=== PATIENT | female | born 1940 | race African-American/Black ===

== ENCOUNTER 2018-06-17 11:03 | Inpatient (IN) | payer MEDICARE, BC ==
[~2018-06-17] VITALS: Ht 172.7 cm; Wt 72.6 kg
[2018-06-17 11:33] LABS: BASOPHILS % 0.5 % (0.0-2.0); EOSINOPHILS % 4.3 % (0.0-5.0); HEMATOCRIT. 42.9 % (36.0-48.0); LYMPHOCYTES % 30.3 % (20.0-50.0); MEAN CORPUSCULAR VOLUME 82.5 fL (81.0-99.0); MEAN PLATELET VOLUME 8.8 fl (7.4-10.4); MONOCYTES % 6.6 % (2.0-8.0); NEUTROPHILS % 58.3 % (40.0-76.0); PLATELET 202 x1000/uL (130-400); RED BLOOD CELL COUNT 5.21 mill/uL (4.2-5.4)
[2018-06-17 11:38] LABS: CHLORIDE 104 mEq/L (98-107)
[2018-06-17 11:42] LABS: ETHANOL BLOOD < 10 mg/dL
[2018-06-17 11:48] LABS: INR 1.1; PROTHROMBIN TIME 10.7 sec (9.1-11.1)
[2018-06-17] MEDS ORDERED: ASPIRIN 81MG EC TABLET PO ONE (12:00)
[2018-06-17] MEDS ORDERED: ONDANSETRON HCL 4MG/2ML INJ IV PRN (12:45)
[2018-06-17] MEDS ORDERED: CLONIDINE 0.1MG TABLET PO PRN (12:45)
[2018-06-17] MEDS ORDERED: ACETAMINOPHEN 325MG TABLET PO PRN (12:45)
[2018-06-17 13:34] LABS: CLARITY URINE CLEAR (CLEAR); COLOR URINE YELLOW (YELLOW); KETONES URINE NEGATIVE (NEGATIVE); LEUKOCYTE ESTERASE URINE NEGATIVE (NEGATIVE); NITRITE URINE NEGATIVE (NEGATIVE); OCCULT BLOOD URINE NEGATIVE (NEGATIVE); PROTEIN URINE NEGATIVE (NEGATIVE); SPECIFIC GRAVITY URINE 1.004 (1.005-1.030); UROBILINOGEN URINE 0.2 E.U./dL (0.2-1.0)
[2018-06-17 14:29] LABS: *AMPHETAMINES SCREEN URINE NEGATIVE (NEGATIVE); *BARBITURATES SCREEN URINE NEGATIVE (NEGATIVE); *BENZODIAZEPINES SCREEN URINE NEGATIVE (NEGATIVE); *COCAINE SCREEN URINE NEGATIVE (NEGATIVE); METHADONE URINE SCREEN NEGATIVE (NEGATIVE)
[2018-06-17 14:30] LABS: CANNABINOID URINE SCREEN NEGATIVE (NEGATIVE); OPIATES URINE SCREEN NEGATIVE (NEGATIVE); PHENCYCLIDINE URINE SCREEN NEGATIVE (NEGATIVE)
[2018-06-17] MEDS: LOSARTAN POTASSIUM 25 MG TABLET PO SCH (15:20)
[2018-06-17 15:59] LABS: CREATINE KINASE MB FRACTION < 1.0 ng/mL (0.5-3.6)
[2018-06-17 16:00] VITALS: BP 183/113
[2018-06-17 16:24] LABS: BG BASE EXCESS -0.2 mmol/L (-2.0-2.0); BG CARBOXYHEMOGLOBIN 0.8 % (0.5-1.5); BG DEOXYHEMOGLOBIN 2.7 % (0.0-5.0); BG HCO3 ACT 24.5 mmol/L (22.0-26.0); BG METHEMOGLOBIN 0.3 % (0.0-1.5); BG OXYGEN SATURATION 97.3 % (92.0-98.5); BG OXYHEMOGLOBIN 96.2 % (94.0-97.0); BG PCO2 40.2 mmHg (35.0-45.0); BG PH 7.403 (7.350-7.450); BG PO2 93.3 mmHg (75.0-100.0); BG SAMPLE SITE RIGHT BRACHIAL; BG TOTAL HEMOGLOBIN 14.3 g/dL (12.0-18.0); BG VENT MODE ROOM AIR
[2018-06-17 16:56] LABS: CHLORIDE 107 mEq/L (98-107)
[2018-06-17 16:57] LABS: BASOPHILS % 0.7 % (0.0-2.0); EOSINOPHILS % 3.5 % (0.0-5.0); HEMATOCRIT. 45.6 % (36.0-48.0); HEMOGLOBIN. 14.5 g/dL (12.0-16.0); INR 1.1; MEAN CORPUSCULAR HEMOGLOBIN 27.2 pg (28.0-32.0); MEAN CORPUSCULAR VOLUME 85.7 fL (81.0-99.0); MEAN PLATELET VOLUME 9.5 fl (7.4-10.4); MONOCYTES % 4.7 % (2.0-8.0); NEUTROPHILS % 62.1 % (40.0-76.0); PARTIAL THROMBOPLASTIN TIME 29.6 sec (23.4-31.0); PLATELET 141 x1000/uL (130-400); PROTHROMBIN TIME 10.6 sec (9.1-11.1); RED BLOOD CELL COUNT 5.32 mill/uL (4.2-5.4); RED CELL DISTRIBUTION WIDTH 14.7 % (11.6-14.6)
[2018-06-17] MEDS ORDERED: ASPIRIN 81MG EC TABLET PO NR (17:30)
[2018-06-17 17:41] VITALS: BP 205/97
[2018-06-17] MEDS: BLOOD SUGAR DIAGNOSTIC STRIP TEST SCH ×2 (18:01→21:22)
[2018-06-17 20:00] VITALS: BP 117/76
[2018-06-17 23:15] LABS: CREATINE KINASE MB FRACTION < 1.0 ng/mL (0.5-3.6)
[2018-06-18] VITALS: BP 105/73
[2018-06-18 04:00] VITALS: BP 120/81
[2018-06-18 07:09] LABS: BASOPHILS % 0.5 % (0.0-2.0); EOSINOPHILS % 5.4 % (0.0-5.0); HEMATOCRIT. 38.9 % (36.0-48.0); HEMOGLOBIN. 12.5 g/dL (12.0-16.0); LYMPHOCYTES % 32.8 % (20.0-50.0); MEAN CORPUSCULAR HEMOGLOBIN 26.7 pg (28.0-32.0); MEAN CORPUSCULAR VOLUME 83.1 fL (81.0-99.0); MEAN PLATELET VOLUME 9.2 fl (7.4-10.4); NEUTROPHILS % 55.3 % (40.0-76.0); PLATELET 167 x1000/uL (130-400); RED BLOOD CELL COUNT 4.69 mill/uL (4.2-5.4); RED CELL DISTRIBUTION WIDTH 14.5 % (11.6-14.6)
[2018-06-18] MEDS: BLOOD SUGAR DIAGNOSTIC STRIP TEST SCH ×2 (07:13→12:12)
[2018-06-18 07:31] LABS: CHLORIDE 107 mEq/L (98-107)
[2018-06-18 08:00] VITALS: BP 143/91
[2018-06-18 08:12] LABS: LDL CHOLESTEROL 107 mg/dL (5-100)
[2018-06-18 08:14] LABS: HDL CHOLESTEROL 64 mg/dL (40-59)
[2018-06-18] MEDS ORDERED: ASPIRIN 81MG EC TABLET PO SCH (09:00)
[2018-06-18] MEDS ORDERED: ENOXAPARIN 40MG/0.4ML SYR SUBCUT SCH (09:00)
[2018-06-18] MEDS: LOSARTAN POTASSIUM 25 MG TABLET PO SCH (09:13)
[2018-06-18 11:44] VITALS: BP_SYST 151; BP_SYST 95; BP_DIAS 105; BP_DIAS 62
[2018-06-18 12:00] VITALS: BP 95/70
[2018-06-18 16:00] VITALS: BP 151/105
[2018-06-18] MEDS ORDERED: ATORVASTATIN CALCIUM 10MG TABLET PO SCH ×2 (21:00)
== END 2018-06-18 16:30 | disposition home or self-care (01) | DRG 123 ==
LOC: ER 11:03 → 8WST 12:17 → ENRESERV 14:22
PROVIDERS: ADMIT Internal Medicine Geriatric Medicine; ATTEND Internal Medicine Geriatric Medicine
DX: G45.3 Amaurosis fugax (principal); R00.1 Bradycardia, unspecified; E78.5 Hyperlipidemia, unspecified; I16.0 Hypertensive urgency; I11.9 Hypertensive heart disease without heart failure; Z86.73 Personal history of transient ischemic attack (TIA), and cerebral infarction without residual deficits
CPT/HCPCS: 36415; 36600; 70544; 70551; 71045; 80061; 80305; 82375; 82553; 82805; 82962; 83036; 83721; 84484; 85384; 85651; 86038; 92610; 93005; 93306; 93880; 93970; 97161; 97166; 99291; G0482; J1650